=== PATIENT | male | born 1950 | race Caucasian/White ===

== ENCOUNTER 2020-03-04 07:48 | Outpatient (CLI) | payer MEDICARE, BC ==
--- NOTE | 2020-03-04 08:39 | MRI ---
EXAM: MRI Upper Ext Jt Lt WO Con DATE: 03/04/2020 7:57 AM INDICATION: Palpable abnormality along the dorsal aspect of the left hand. COMPARISON: Left hand radiograph dated 02/24/2020 from [facility]. FINDING: Surface marker was placed in the region of palpable interest overlying the dorsal aspect of the index metacarpal trapezoid articulation. There is a mildly prominent dorsal osteophyte at this articulation that likely corresponds to the palpable abnormality. The adjacent ECRB and ECRL tendons are intact. The remaining extensor tendons appear intact. There is an intratendinous split tear involving the visualized ECU tendon extending from the level of the distal ulna with reconstitution a t the level of the proximal carpal row. The carpal tunnel and its contents are normal appearing. The ulnar neural vasculature and median nerve is normal-appearing. There is remote appearing avulsion fracture involving the dorsal aspect of the lunate. The chronic ununited dorsal lunate fracture fragment measures 6 mm and is best seen on image 20 of series 5. This is seen at the attachment point of the dorsal scapholunate band. The volar aspect of the scapholunate ligament and interosseous segment appear intact. Lunatotriquetral ligaments are intact. The visualized extrinsic ligaments of t he wrist appear intact. There is a small central perforation within the TFC. IMPRESSION: 1. The palpable abnormality overlying the dorsal aspect of the left hand corresponds to a mildly prom inent dorsal osteophyte at the index finger-trapezoid articulation. 2. Remote ununited fracture involving the dorsal lunate at the attachment point of the dorsal band of the scapholunate ligament. The interosseous and volar components of the scapholunate ligament are intact. 3. Small central perforation of the TFC. Small intratendinous split tear of the ECU tendon. Transcribed Date/Time: 03/04/2020 8:54 AM
== END 2020-03-04 07:49 | disposition home or self-care (01) ==
LOC: TBSIIMAG 07:48
PROVIDERS: ATTEND Internal Medicine
DX: R22.32 Localized swelling, mass and lump, left upper limb (principal); S56.512A Strain of other extensor muscle, fascia and tendon at forearm level, left arm, initial encounter; M25.742 Osteophyte, left hand